=== PATIENT | male | born 1970 | race Caucasian/White ===

== ENCOUNTER 2021-03-15 11:38 | Outpatient (REF) | payer BC, SELFPAY ==
[2021-03-15 14:30] LABS: Vitamin B12 557 pg/mL (200-900)
[2021-03-15 14:42] LABS: Erythrocyte Sedimentation Rate 5 MM/HR (0-15)
[2021-03-16 08:06] LABS: Syphilis Screen Nonreactive (Nonreactive)
[2021-03-16 13:06] LABS: Lyme Abs Screen <0.90 index
== END 2021-03-15 11:39 | disposition home or self-care (01) ==
LOC: HO.LAB 11:38
PROVIDERS: PCP Internal Medicine; Visit Provider Psychiatry & Neurology Neurology
DX: G93.40 Encephalopathy, unspecified (principal)
CPT/HCPCS: 36415; 82607; 85652; 86617; 86618; 86780

== ENCOUNTER 2021-06-22 14:33 | Outpatient (REF) | payer BC, SELFPAY | END 2021-06-22 14:34 | disposition home or self-care (01) | LOC: HO.LAB 14:33 | PROVIDERS: PCP Internal Medicine; Visit Provider Psychiatry & Neurology Neurology | DX: Z13.89 Encounter for screening for other disorder (principal) ==

== ENCOUNTER → 2021-07-28 12:45 | Outpatient (REF) | payer OTHER, SELFPAY | LOC: HO.SL 12:45 | PROVIDERS: PCP Internal Medicine; Visit Provider Psychiatry & Neurology Neurology | DX: G47.33 Obstructive sleep apnea (adult) (pediatric) (principal) | CPT/HCPCS: 95806 ==

== ENCOUNTER 2021-07-29 10:57 | Outpatient (REF) | payer OTHER, SELFPAY | END 2021-07-29 10:58 | disposition home or self-care (01) | LOC: HO.LNP 10:57 | PROVIDERS: Visit Provider Psychiatry & Neurology Neurology | DX: Z13.89 Encounter for screening for other disorder (principal) ==